=== PATIENT | male | born 1985 | race Caucasian/White ===

== ENCOUNTER 2016-11-28 09:31 | Emergency (ER) | payer OTHER ==
--- NOTE | ~2016-11-28 | ER ---
PATIENT'S NAME: MIREILLE THOMPSON [facility] AGE: 31 Y [address] ROOM: [place] [id number] LOCATION: [facility] ADMIT DATE: 11/28/2016 ER/Outpatient Report DISCHARGE DATE: 11/28/2016 FAMILY PHYSICIAN: PHYSICIAN, NO ATTENDING PHYSICIAN: Kwan Chang CHIEF COMPLAINT: Right foot puncture wound. HISTORY OF PRESENT ILLNESS: Mr. Thompson presented for evaluation of foot injury. Yesterday evening, he was fishing when he inadvertently stepped on a pair of needle-nose pliers, which did puncture the bottom of his foot. He was not wearing any footwear. He cleaned the area with alcohol, and a family member recommended he have it evaluated today. It is uncomfortable, and he has been trying anti- inflammatories. He knows for a fact that his last tetanus shot was within the last four years. He denies any other symptoms at this time. PAST MEDICAL HISTORY: Documented on the record and reviewed by me. SOCIAL HISTORY: Documented on the record and reviewed by me. MEDICATIONS: Documented on the record and reviewed by me. ALLERGIES: DOCUMENTED ON THE RECORD AND REVIEWED BY ME. REVIEW OF SYSTEMS: All systems were reviewed and are negative except as noted in the HPI. PHYSICAL EXAMINATION: VITAL SIGNS: Blood pressure was 150/99, pulse was 90, respiratory rate was 16, temperature was 97.9, and SpO2 was 96% on room air. Pain is rated at 5/10. GENERAL: Age-appropriate male, in mild pain. No distress. NEUROLOGIC: Awake and alert. GCS was 15. No focal deficits. No asymmetry. HEENT: Normocephalic and atraumatic. Eyes are PERRL. Oropharynx is clear. NECK: Supple. Trachea is midline. ABDOMEN: Benign. CHEST: Heart is regular rate and rhythm. LUNGS: Even and unlabored respirations. EXTREMITIES: Warm and well perfused. No deformities or edema. PATIENT'S NAME: MIREILLE THOMPSON [facility] AGE: 31 Y [address] ROOM: [place] [address] LOCATION: [facility] ADMIT DATE: 11/28/2016 ER/Outpatient Report DISCHARGE DATE: 11/28/2016 FAMILY PHYSICIAN: PHYSICIAN, NO ATTENDING PHYSICIAN: Kwan Chang SKIN: There is a 1.8-cm plantar tissue defect on the right foot. It is a tear with some debridement. It is open. The wound was probed to its base and no foreign material was identified. No obvious infection. Minimal surrounding erythema. LABORATORY DATA AND X-RAYS: Plain films of the foot did not reveal any deep foreign bodies. IMPRESSION: Plantar puncture wound. EMERGENCY DEPARTMENT COURSE: The patient was seen and evaluated as above. The wound was irrigated copiously using normal saline and Betadine. X-rays confirmed that there was no retained radiopaque foreign body. Wound exploration does not indicate further concern at this time. Based on the wound architecture and time, I do not think that it is amenable for a definitive closure. I did, however, elect to place one 3-0 chromic gut suture in a buried fashion to approximate the center-most portions of the wound to help prevent gross contamination. There was still ample room for any deep space infection to egress. The patient tolerated the procedure well with no anesthesia. He will be started on Keflex as there is some surrounding erythema that is slightly more prominent than I would expect with just local tissue irritation. Follow up as needed. Return immediately if worse or signs of systemic infection. Wound care was regarded. Sutures are dissolvable. MD TOMAS MORENO/rema /[id number] d: 11/28/161999 t: 12/15/16 [facility], OUTPATIENT REPORT
== END 2016-11-28 10:25 | disposition disaster alternative care site (69) ==
LOC: GACC 09:31
PROC: 0HQMXZZ Repair Right Foot Skin, External Approach (ICD-10-PCS; principal; 2016-11-28)
DX: S91.331A Puncture wound without foreign body, right foot, initial encounter (principal); W22.8XXA Striking against or struck by other objects, initial encounter; Y93.89 Activity, other specified